=== PATIENT | female | born 1970 | race American Indian/Alaskan Native ===

== ENCOUNTER 2018-02-16 11:02 | Emergency (ER) | payer OTHER ==
[2018-02-16 11:29] VITALS: BP 134/82
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
[2018-02-16 12:50] LABS: HCG Qualitative,Urine Negative (Negative)
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
== END 2018-02-16 14:53 | disposition home or self-care (01) ==
LOC: ED 11:02
DX: R51 Headache (principal); M54.5 Low back pain; E78.00 Pure hypercholesterolemia, unspecified; V49.49XA Driver injured in collision with other motor vehicles in traffic accident, initial encounter; Y93.89 Activity, other specified; Y92.89 Other specified places as the place of occurrence of the external cause; Y99.8 Other external cause status
CPT/HCPCS: 70450; 81025